=== PATIENT | male | born 1950 | race Caucasian/White ===

== ENCOUNTER 2025-03-25 05:45 | Observation (INO) | payer OTHER ==
[2025-03-24 12:03] VITALS: BMI 46.3
[2025-03-25] MEDS ORDERED: Lidocaine 1% w/Epinephrine 1:200K 30 ML VIAL ONE (06:15)
[2025-03-25] MEDS ORDERED: Sevoflurane 250 ML INH ANEST BOTTLE ONE (06:25)
[2025-03-25] MEDS ORDERED: Phenylephrine 40 MG/NS 250 ML 250 ML ONE (06:49)
[2025-03-25] MEDS ORDERED: SUCCINYLCHOLINE/SOD CL,ISO/PF 200 MG/10 ML SYRINGE FS ONE ×2 (06:52→06:53)
[2025-03-25] MEDS ORDERED: Rocuronium Bromide 10 MG/ML (10ML VIAL) ONE (06:52)
[2025-03-25] MEDS ORDERED: PROPOFOL 20 ML ONE (06:52)
[2025-03-25] MEDS ORDERED: Ondansetron PF 4 MG/2 ML Vial ONE ×2 (06:52→09:59)
[2025-03-25] MEDS ORDERED: SUGAMMADEX SODIUM 200 MG/2 ML VIAL ONE (06:53)
[2025-03-25] MEDS ORDERED: PHENYLEPHRINE-NS 100 MCG/ML 10 ML SYRINGE ONE (06:53)
[2025-03-25] MEDS ORDERED: Glycopyrrolate 0.2 MG/ML 5 ML SYRINGE ONE (06:53)
[2025-03-25] MEDS ORDERED: Acetaminophen 325 MG TAB PO PRN (06:57)
[2025-03-25] MEDS ORDERED: Ondansetron PF 4 MG/2 ML Vial IVP PRN (06:57)
[2025-03-25 07:21] LABS: Hematocrit 41.8 % (38.8-50.0); Hemoglobin 13.9 g/dL (13.5-17.5)
[2025-03-25 07:37] LABS: Anion Gap 18 mmol/L (10-20); BUN (Urea Nitrogen) 9 mg/dL (8.4-25.7); Calc. Creatinine Clearance 150 mL/min (70-130); Calcium 9.4 mg/dL (7.8-10.44); Carbon Dioxide 24 mmol/L (23-31); Chloride 95 mmol/L (98-107); Glucose 131 mg/dL (83-110); Potassium 3.6 mmol/L (3.5-5.1); Sodium 133 mmol/L (136-145)
[2025-03-25] MEDS ORDERED: Non-Formulary Medication 1 EACH (Fluticasone Propion/Salmeterol [Advair Diskus 250/50] 1 E IH SCH (09:00)
[2025-03-25] MEDS: Acetaminophen/Codeine 30-300mg Tablet PO PRN (10:52)
[2025-03-25] MEDS ORDERED: dilTIAZem 60 MG TAB PO SCH (11:30)
[2025-03-25] MEDS: FLU (Fluad Triv) 25-26 (65UP)PF 45 MCG/0.5 ML Syringe IM ONE (12:19)
[2025-03-25] MEDS: dilTIAZem 30 MG TAB PO SCH (12:22)
[2025-03-25] MEDS: Mometasone 200 MCG/Formoterol 5 MCG 60 PUFF INHALER INH SCH (19:30)
[2025-03-25] MEDS: Simvastatin 10 MG TAB PO SCH (21:53)
[2025-03-26 00:44] VITALS: TEMP 98
[2025-03-26] MEDS: Mometasone 200 MCG/Formoterol 5 MCG 60 PUFF INHALER INH SCH (06:50)
[2025-03-26] MEDS: dilTIAZem 30 MG TAB PO SCH (09:56)
[2025-03-26 10:06] VITALS: BP 131/56
== END 2025-03-26 09:30 | disposition home or self-care (01) ==
LOC: CSHSDC 05:45 → CSHTELE 10:32
PROVIDERS: ADMIT Otolaryngology Otolaryngic Allergy; ATTEND Otolaryngology Otolaryngic Allergy
PROC: 0CB90ZZ Excision of Left Parotid Gland, Open Approach (ICD-10-PCS; principal; 2025-03-25)
DX: D11.0 Benign neoplasm of parotid gland (principal); I10 Essential (primary) hypertension; E11.9 Type 2 diabetes mellitus without complications; E78.5 Hyperlipidemia, unspecified; J44.9 Chronic obstructive pulmonary disease, unspecified; F17.210 Nicotine dependence, cigarettes, uncomplicated; Z88.0 Allergy status to penicillin; Z79.85 Long-term (current) use of injectable non-insulin antidiabetic drugs; Z79.899 Other long term (current) drug therapy
CPT/HCPCS: 42415; 80048; 82962 ×2; 85014; 85018; 94640 ×3; 94664; 94760; J0169; J1100; J2405; J2704 ×2; J3010; J3490; 36416; 88307